=== PATIENT | female | born 1945 | race Two or more races ===

== ENCOUNTER 2017-02-03 06:25 | Day surgery (SDC) | payer MEDICARE, OTHER ==
[2017-02-02 17:07] VITALS: BMI 25.6
[~2017-02-03 06:25] MED LIST: ACETAMINOPHEN 325 MG TABLET (FP) PO PRN; CHONDROITIN SU A/HYALUR SOD 1 KIT IO ONE; CIPROFLOXACIN HCL 0.3% OPHTH 2.5ML BOTTLE OP SCH; CYCLOPENTOLATE HCL 1% OPHTH SOLN 2 ML BOTTLE OP SCH; EPINEPHrine/PF 1 MG/1 ML (1:1,000) AMPULE IO ONE; FLURBIPROFEN 0.03% OPHTH SOLN 2.5 ML BOTTLE OP SCH; LIDOCAINE HCL 1% PRESERVATIVE FREE - 30ML VIAL IO ONE; PHENYLEPHRINE 2.5% OPHTH SOLN 15 ML BOTTLE OP SCH; TETRACAINE 0.5% OPHTH SOLN 2 ML BOTTLE OS ONE; TROPICAMIDE 1% OPHTH SOLN 15 ML BOTTLE OP SCH; VANCOMYCIN 500 MG VIAL (RESTRICTED TO ID ONLY) IVPB ONE
[2017-02-03] MEDS ORDERED: TROPICAMIDE 1% OPHTH SOLN 15 ML BOTTLE ONE (07:44)
[2017-02-03] MEDS ORDERED: PHENYLEPHRINE 2.5% OPHTH SOLN 15 ML BOTTLE ONE (07:44)
[2017-02-03] MEDS ORDERED: FLURBIPROFEN 0.03% OPHTH SOLN 2.5 ML BOTTLE ONE (07:44)
[2017-02-03] MEDS ORDERED: CIPROFLOXACIN 0.3% EYE DROPS 5 ML BOTTLE ONE (07:44)
[2017-02-03] MEDS ORDERED: CYCLOPENTOLATE HCL 1% OPHTH SOLN 2 ML BOTTLE ONE (07:44)
[2017-02-03] MEDS ORDERED: MIDAZOLAM HCL 2 MG/2 ML SINGLE DOSE VIAL ONE (07:46)
[2017-02-03] MEDS ORDERED: VANCOMYCIN 500 MG VIAL (RESTRICTED TO ID ONLY) ONE (07:52)
[2017-02-03] MEDS ORDERED: LIDOCAINE HCL/PF 1% SDV 5ML VIAL ONE (07:52)
[2017-02-03] MEDS ORDERED: TETRACAINE 0.5% OPHTH SOLN 2 ML BOTTLE ONE (07:52)
[2017-02-03 08:19] VITALS: TEMP 98.8
[2017-02-03] MEDS ORDERED: TETRACAINE 0.5% OPHTH SOLN 2 ML BOTTLE OS ONE (08:20)
[2017-02-03] MEDS ORDERED: POVIDONE-IODINE 5% OPHTHALMIC PREP 30 ML SOLUTION OS ONE (08:22)
[2017-02-03] MEDS ORDERED: LIDOCAINE HCL 1% PRESERVATIVE FREE - 30ML VIAL IO ONE (08:32)
[2017-02-03] MEDS ORDERED: BSS (NA/CA/MG/K) BALANCED SALT SOLUTION OPHTH SOLN 15 ML BOTTLE IO ONE (08:33)
[2017-02-03] MEDS ORDERED: CHONDROITIN SU A/HYALUR SOD 1 KIT IO ONE (08:37)
[2017-02-03] MEDS ORDERED: EPINEPHrine/PF 1 MG/1 ML (1:1,000) AMPULE IO ONE (08:39)
[2017-02-03] MEDS ORDERED: VANCOMYCIN 500 MG VIAL (RESTRICTED TO ID ONLY) IVPB ONE (08:56)
[2017-02-03 10:07] VITALS: BP 123/54; PULSE 68
--- NOTE | 2017-02-03 10:10 | OP ---
DATE OF OPERATION: 02/03/2017 SURGEON: Jessica Valdez M.D. PREOPERATIVE DIAGNOSIS: Cataract, left eye. POSTOPERATIVE DIAGNOSIS: Cataract, left eye. OPERATION: Phacoemulsification of left cataract with posterior chamber intraocular lens implantation. LENS USED: [id number], 22.5 diopter power, serial No. [id number]. ANESTHESIA: Topical MAC. COMPLICATIONS: None. PROCEDURE: The patient was brought to the operating room and correctly identified along with the operative site as well and the correct intraocular lens paul. She was then prepped and draped in the usual sterile fashion including 5% Betadine solution in the conjunctival sac and an eyelid drape. An eyelid speculum was then placed into the left eye. A paracentesis port was created. Intracameral lidocaine was given 0.5 mL of 1% lidocaine preservative-free as well as viscoelastic to inflate the anterior chamber. A temporal clear corneal wound was created. A continuous circular capsulorrhexis was performed. The nucleus was hydro-dissected with BSS and removed with phacoemulsification. The remaining cortical material was irrigated and aspirated from the eye. Viscoelastic was injected to inflate the capsular bag, and the lens was injected into the capsular bag. Viscoelastic was irrigated and aspirated from the eye. The eye was then filled with BSS, and with stromal hydration, the wounds were noted to be sealed and the chambers stable. However, with some pressure on the sclera, a small leak was noted. A single 10-0 nylon suture was placed in the temporal clear corneal wound. Again, the wounds were tested, and this time, no leak was found with any pressure. Topical Vancomycin was given, the eye patched and shielded, and the patient was discharged from the operating room in a stable condition. JESSICA VALDEZ M.D. [id number]
== END 2017-02-03 10:09 | disposition home or self-care (01) ==
LOC: JASU-SURG 06:25
PROVIDERS: ATTEND Ophthalmology
PROC: 08RK3JZ Replacement of Left Lens with Synthetic Substitute, Percutaneous Approach (ICD-10-PCS; principal; 2017-02-03 08:00)
DX: H26.9 Unspecified cataract (principal)

== ENCOUNTER 2020-11-04 04:59 | Day surgery (SDC) | payer OTHER ==
[2020-11-01 12:34] VITALS: BMI 29.2
[2020-11-04] MEDS ORDERED: PROMETHAZINE HCL 25 MG/1 ML VIAL IVPUSH PRN (08:28)
[2020-11-04] MEDS ORDERED: ONDANSETRON 4 MG/2 ML VIAL IVPUSH PRN (08:28)
[2020-11-04] MEDS ORDERED: LACTATED RINGERS SOLUTION 1,000 ML IV SCH (08:30)
[2020-11-04 12:21] VITALS: BP 137/60; PULSE 62; TEMP 97.5
== END 2020-11-04 12:55 | disposition home or self-care (01) ==
LOC: JASU-SURG 04:59
PROVIDERS: ATTEND Obstetrics & Gynecology
PROC: 0UDB7ZX Extraction of Endometrium, Via Natural or Artificial Opening, Diagnostic (ICD-10-PCS; principal; 2020-11-04 07:30)
PROC: 0UJD8ZZ Inspection of Uterus and Cervix, Via Natural or Artificial Opening Endoscopic (ICD-10-PCS; 2020-11-04 07:30)
DX: D25.0 Submucous leiomyoma of uterus (principal); E11.9 Type 2 diabetes mellitus without complications; I10 Essential (primary) hypertension; Z79.4 Long term (current) use of insulin
CPT/HCPCS: 82962; 88305-TC; 88341-TC; 88342-TC; 94760

== ENCOUNTER 2022-01-07 16:06 | Observation (INO) | payer OTHER ==
[2022-01-07 16:31] VITALS: BMI 29.2
[2022-01-07] MEDS ORDERED: ONDANSETRON 4 MG/2 ML VIAL IVPUSH ONE (17:40)
[2022-01-07] MEDS ORDERED: ACETAMINOPHEN 1000 MG/100 ML BAG IVPB ONE (17:40)
[2022-01-07] MEDS ORDERED: SODIUM CHLORIDE 0.9% 500 ML INFUS.BAG IV ONE (17:40)
[2022-01-07] MEDS ORDERED: PANTOPRAZOLE SODIUM 40 MG VIAL IVPUSH ONE ×2 (17:55→18:21)
[2022-01-07] MEDS ORDERED: ACETAMINOPHEN INJECTION 100 ML IVPB ONE (18:15)
[2022-01-07] MEDS ORDERED: ONDANSETRON 4 MG/2 ML VIAL ONE (18:15)
[2022-01-07 18:44] LABS: VENOUS BASE EXCESS 0.8 mmol/L (-2-2); VENOUS O2 SATURATION 43.4 % (70-80); VENOUS PCO2 51.6 mmHg (38-52); VENOUS PH 7.343 (7.310-7.410)
[2022-01-07 18:55] LABS: BASO % 1.4 % (0-2.0); EOS % 0.3 % (0-4.5); HEMATOCRIT 44.2 % (32.4-45.2); HEMOGLOBIN 13.8 GM/dL (10.7-15.3); LYMPH % 3.7 % (8-40); MCHC 31.4 g/dl (32.0-36.0); MEAN CELL VOLUME 82.8 fl (80-96); MEAN PLT VOLUME 9.7 fl (7.5-11.1); NEUT % 90.6 % (42.8-82.8); PLATELET COUNT 182 10^3/uL (134-434); RBC 5.33 M/mm3 (3.60-5.2); RDW 14.5 % (11.6-15.6); WHITE BLOOD COUNT 7.6 K/mm3 (4.0-10.0)
[2022-01-07 19:03] LABS: EPI CELLS 36 /uL (0-25.1); HYALINE CASTS 14 /uL (0-3.1); URINE APPEARANCE CLOUDY; URINE BACTERIA 555 /uL (0-1359); URINE BILIRUBIN NEGATIVE (NEGATIVE); URINE COLOR YELLOW; URINE GLUCOSE (UA) NEGATIVE (NEGATIVE); URINE KETONE TRACE (NEGATIVE); URINE LEUK ESTERASE 2+ (NEGATIVE); URINE NITRITE NEGATIVE (NEGATIVE); URINE PROTEIN TRACE (NEGATIVE); URINE WBC 170 /uL (0-25.8)
[2022-01-07] MEDS ORDERED: PANTOPRAZOLE SODIUM 40 MG VIAL ONE (19:06)
[2022-01-07] MEDS ORDERED: PANTOPRAZOLE SODIUM 40 MG/100 ML BAG IVPB ONE (19:07)
[2022-01-07 19:19] LABS: BLOOD UREA NITROGEN 12.1 mg/dL (7-18); CALCIUM 9.2 mg/dL (8.5-10.1)
[2022-01-07 19:22] LABS: CREATININE 0.8 mg/dL (0.55-1.3)
[2022-01-07 19:23] LABS: BILIRUBIN,TOTAL 0.5 mg/dL (0.2-1)
[2022-01-07] MEDS ORDERED: CEFTRIAXONE 1 GM/50 ML BAG ONE (19:59)
[2022-01-08 08:54] LABS: BASO % 0.8 % (0-2.0); EOS % 2.2 % (0-4.5); HEMATOCRIT 37.9 % (32.4-45.2); LYMPH % 19.5 % (8-40); MCHC 31.8 g/dl (32.0-36.0); MEAN PLT VOLUME 9.8 fl (7.5-11.1); MONO % 10.9 % (3.8-10.2); NEUT % 66.6 % (42.8-82.8); PLATELET COUNT 154 10^3/uL (134-434); RBC 4.62 M/mm3 (3.60-5.2); RDW 14.3 % (11.6-15.6); WHITE BLOOD COUNT 3.7 K/mm3 (4.0-10.0)
[2022-01-08 09:18] LABS: BLOOD UREA NITROGEN 11.1 mg/dL (7-18); CALCIUM 8.4 mg/dL (8.5-10.1); MAGNESIUM 2.2 mg/dL (1.8-2.4)
[2022-01-08 09:20] LABS: CREATININE 0.6 mg/dL (0.55-1.3); PHOSPHOROUS 5.1 mg/dL (2.5-4.9)
[2022-01-08 09:22] LABS: TOT PROT 5.4 g/dl (6.4-8.2)
[2022-01-08 09:34] LABS: BILIRUBIN,TOTAL 0.7 mg/dL (0.2-1)
[2022-01-08 09:36] LABS: ALBUMIN 3.2 g/dl (3.4-5.0)
[2022-01-08] MEDS ORDERED: CEFTRIAXONE 1 GM in DEXTROSE 5%-WATER - 50 ML IVPB SCH (10:00)
[2022-01-08] MEDS ORDERED: LOSARTAN POTASSIUM 25 MG TABLET PO SCH (10:00)
[2022-01-08] MEDS ORDERED: HYDROCHLOROTHIAZIDE 25 MG TABLET (FP) PO SCH (10:00)
[2022-01-08] MEDS: ENOXAPARIN NA (PORCINE) 40 MG/0.4 ML DISP.SYRIN SQ SCH (11:50)
[2022-01-08] MEDS: HYDROCHLOROTHIAZIDE 25 MG TABLET (FP) PO SCH (11:50)
[2022-01-08] MEDS: CLOPIDOGREL BISULFATE 75 MG TABLET (FP) PO SCH (11:50)
[2022-01-08] MEDS: LOSARTAN POTASSIUM 25 MG TABLET PO SCH (11:50)
[2022-01-08] MEDS: amLODIPine BESYLATE 5 MG TABLET (FP) PO SCH (11:50)
[2022-01-08] MEDS: CEFTRIAXONE 1 GM in DEXTROSE 5%-WATER - 50 ML IVPB SCH (11:51)
[2022-01-08] MEDS ORDERED: ACETAMINOPHEN 1000 MG/100 ML BAG IVPB PRN (13:02)
[2022-01-08] MEDS ORDERED: ATORVASTATIN CA 20 MG TABLET (FP) PO SCH (22:00)
[2022-01-09 09:21] LABS: BASO % 0.9 % (0-2.0); EOS % 2.8 % (0-4.5); HEMATOCRIT 39.6 % (32.4-45.2); HEMOGLOBIN 12.9 GM/dL (10.7-15.3); LYMPH % 51.5 % (8-40); MCH 26.7 pg (25.7-33.7); MCHC 32.5 g/dl (32.0-36.0); MEAN CELL VOLUME 82.4 fl (80-96); MEAN PLT VOLUME 9.3 fl (7.5-11.1); MONO % 9.3 % (3.8-10.2); NEUT % 35.5 % (42.8-82.8); PLATELET COUNT 166 10^3/uL (134-434); RBC 4.81 M/mm3 (3.60-5.2); RDW 14.2 % (11.6-15.6)
[2022-01-09] MEDS: LOSARTAN POTASSIUM 25 MG TABLET PO SCH (09:35)
[2022-01-09] MEDS: ENOXAPARIN NA (PORCINE) 40 MG/0.4 ML DISP.SYRIN SQ SCH (09:36)
[2022-01-09] MEDS: HYDROCHLOROTHIAZIDE 25 MG TABLET (FP) PO SCH (09:36)
[2022-01-09] MEDS: CEFTRIAXONE 1 GM in DEXTROSE 5%-WATER - 50 ML IVPB SCH (09:37)
[2022-01-09] MEDS: CLOPIDOGREL BISULFATE 75 MG TABLET (FP) PO SCH (09:37)
[2022-01-09 09:48] LABS: ALBUMIN 3.6 g/dl (3.4-5.0); BLOOD UREA NITROGEN 11.3 mg/dL (7-18)
[2022-01-09 09:49] LABS: CREATININE 0.6 mg/dL (0.55-1.3)
[2022-01-09 09:51] LABS: BILIRUBIN,TOTAL 0.4 mg/dL (0.2-1)
[2022-01-09] MEDS: amLODIPine BESYLATE 5 MG TABLET (FP) PO SCH (10:44)
[2022-01-09] MEDS ORDERED: SIMETHICONE 80 MG TAB.CHEW (FP) PO PRN (12:02)
[2022-01-09] MEDS ORDERED: MAG HYDROX/AL HYDROX/SIMETH 30 ML UNIT-DOSE CUP PO PRN (12:03)
[2022-01-09 14:45] VITALS: BP 145/51; PULSE 60; RESP 18; TEMP 98.3
== END 2022-01-09 18:30 | disposition home or self-care (01) ==
LOC: JER 16:06 → JERBED 21:39 → J7W 01-08 00:53
PROVIDERS: ADMIT Internal Medicine
PROC: 3E033GC Introduction of Other Therapeutic Substance into Peripheral Vein, Percutaneous Approach (ICD-10-PCS; principal; 2022-01-07)
PROC: 3E0337Z Introduction of Electrolytic and Water Balance Substance into Peripheral Vein, Percutaneous Approach (ICD-10-PCS; 2022-01-07)
PROC: 3E03329 Introduction of Other Anti-infective into Peripheral Vein, Percutaneous Approach (ICD-10-PCS; 2022-01-07)
PROC: 3E013GC Introduction of Other Therapeutic Substance into Subcutaneous Tissue, Percutaneous Approach (ICD-10-PCS; 2022-01-07)
DX: N30.00 Acute cystitis without hematuria (principal); R11.2 Nausea with vomiting, unspecified; R53.1 Weakness; I10 Essential (primary) hypertension; E11.9 Type 2 diabetes mellitus without complications; E78.5 Hyperlipidemia, unspecified; F41.9 Anxiety disorder, unspecified; G89.29 Other chronic pain; K76.0 Fatty (change of) liver, not elsewhere classified; R74.01 Elevation of levels of liver transaminase levels; Z86.73 Personal history of transient ischemic attack (TIA), and cerebral infarction without residual deficits; Z79.84 Long term (current) use of oral hypoglycemic drugs; Z87.11 Personal history of peptic ulcer disease
CPT/HCPCS: 0241U-QW; 36415; 71045-TC-FY; 74177-TC; 80053; 81003; 82272; 82803; 83735; 84100; 85025; 87086; 93005; 93010; 96372; 96374; 96375; 96376; 97116-GP; 97162-GP; 99285-25; G0378; Q9967

== ENCOUNTER 2022-02-03 04:48 | Day surgery (SDC) | payer OTHER ==
[2022-01-30 10:17] VITALS: BMI 28.9
[2022-02-03 11:42] VITALS: TEMP 98.2
[2022-02-03 11:43] VITALS: RESP 18
[2022-02-03 11:50] VITALS: BP 141/63; PULSE 63
== END 2022-02-03 12:05 | disposition home or self-care (01) ==
LOC: JASU-ENDO 04:48
PROVIDERS: ATTEND Student in an Organized Health Care Education/Training Program
PROC: 0DB78ZX Excision of Stomach, Pylorus, Via Natural or Artificial Opening Endoscopic, Diagnostic (ICD-10-PCS; 2022-02-03)
PROC: 0DB68ZX Excision of Stomach, Via Natural or Artificial Opening Endoscopic, Diagnostic (ICD-10-PCS; 2022-02-03)
PROC: 0DB38ZX Excision of Lower Esophagus, Via Natural or Artificial Opening Endoscopic, Diagnostic (ICD-10-PCS; 2022-02-03)
PROC: 0DB98ZX Excision of Duodenum, Via Natural or Artificial Opening Endoscopic, Diagnostic (ICD-10-PCS; principal; 2022-02-03 09:30)
DX: K29.50 Unspecified chronic gastritis without bleeding (principal); K21.00 Gastro-esophageal reflux disease with esophagitis, without bleeding; K31.7 Polyp of stomach and duodenum; I10 Essential (primary) hypertension; E11.9 Type 2 diabetes mellitus without complications; Z79.84 Long term (current) use of oral hypoglycemic drugs
CPT/HCPCS: 82962; 88305-TC; 88342-TC